=== PATIENT | male | born 2000 ===

== ENCOUNTER 2021-08-07 22:06 | Observation (INO) | payer SELFPAY ==
--- NOTE | 2021-08-07 22:55 | XRay Report ---
CHEST 1 VIEW 08/07/2021 9:49 PM INDICATION / CLINICAL INFORMATION: Chest Pain. COMPARISON: None available. FINDINGS: SUPPORT DEVICES: None. HEART / MEDIASTINUM: No significant abnormality. LUNGS / PLEURA: No significant pulmonary or pleural abnormality. No pneumothorax. ADDITIONAL FINDINGS: No significant additional findings. IMPRESSION: 1. No acute findings. Signer Name: Antonio Sam MD Signed: 08/07/2021 10:51 PM Workstation Name: [id number]
[2021-08-07 22:59] LABS: Basophils % (Auto) 0.4 % (0.0-1.8); Eosinophils # (Auto) 0.1 K/mm3 (0.0-0.4); Hematocrit 44.9 % (35.5-45.6); Hemoglobin 15.2 gm/dl (11.8-15.2); Lymphocytes # (Auto) 1.4 K/mm3 (1.2-5.4); Lymphocytes % (Auto) 19.8 % (13.4-35.0); Mean Corpuscular HGB Conc 34 % (32-34); Mean Corpuscular Volume 95 fl (84-94); Monocytes % (Auto) 14.6 % (0.0-7.3); Platelet Count 132 K/mm3 (140-440); Red Blood Count 4.76 M/mm3 (3.65-5.03); Red Cell Distribution Width 12.4 % (13.2-15.2)
[2021-08-07 23:10] LABS: INR 0.93 (0.87-1.13)
[2021-08-07 23:11] LABS: Partial Thromboplastin Time 27.9 Sec. (24.2-36.6)
[2021-08-07 23:38] LABS: Alanine Aminotransferase 18 units/L (7-56); Albumin 4.5 g/dL (3.9-5); BUN/Creatinine Ratio 17; Blood Urea Nitrogen 15 mg/dL (9-20); Hemolysis Index 4
[2021-08-07] MEDS ORDERED: ASPIRIN 81 MG TAB CHEW PO ONE (23:59)
--- NOTE | 2021-08-08 00:37 | Emergency Department Report ---
ED General Adult HPI - General Chief complaint: Chest Pain Stated complaint: CHEST PAIN Time Seen by Provider: 08/07/21 22:16 Source: patient Mode of arrival: Ambulatory Limitations: No Limitations - History of Present Illness Initial comments: The patient presents to the emergency department with a chief complaint of chest pain that started yesterday. Patient is Divehi-speaking thus is acts as the certified court/medical interpreter. He states the chest pain started in his substernal region radiating into his left chest and left arm. He also complains of the pain radi ated to his throat. The chest pain is described as pressure/burning sensation. He complains of nausea but denies diaphoresis. Patient received a second maternal shot 2 days ago. Patient states the pain is worse when laying down -: Sudden Location: chest Radiation: extremity Severity scale (0 -10): 7 Quality: burning, other (Pressure) Consistency: constant Improves with: none Worsens with: none Associated Symptoms: denies other symptoms Treatments Prior to Arrival: none - Related Data Allergies Allergy/AdvReac Type Severity Reaction Status Date / Time No Known Allergies Allergy Unverified 08/07/21 23:18 ED Review of Systems ROS: Stated complaint: CHEST PAIN Other details as noted in HPI Constitutional: denies: chills, fever Eyes: denies: eye pain, eye discharge, vision change ENT: denies: ear pain, throat pain Respiratory: denies: cough, shortness of breath, wheezing Cardiovascular: chest pain. denies: palpitations Endocrine: no symptoms reported Gastrointestinal: denies: abdominal pain, nausea, diarrhea Genitourinary: denies: urgency, dysuria Musculoskeletal: denies: back pain, joint swelling, arthralgia Skin: denies: rash, lesions Neurological: denies: headache, weakness, paresthesias Psychiatric: denies: anxiety, depression Hematological/Lymphatic: denies: easy bleeding, easy bruising ED Past Medical Hx - Past Medical History Previous Medical History?: No - Surgical History Past Surgical History?: No ED Physical Exam - General Limitations: No Limitations General appearance: alert, in no apparent distress - Head Head exam: Present: atraumatic, normocephalic - Eye Eye exam: Present: normal appearance, PERRL, EOMI - ENT ENT exam: Present: mucous membranes moist - Neck Neck exam: Present: normal inspection - Respiratory Respiratory exam: Present: normal lung sounds bilaterally. Absent: respiratory distress - Cardiovascular Cardiovascular Exam: Present: regular rate, normal rhythm. Absent: systolic murmur, diastolic murmur, rubs, gallop - GI/Abdominal GI/Abdominal exam: Present: soft, normal bowel sounds. Absent: distended, t enderness - Rectal Rectal exam: Present: deferred - Extremities Exam Extremities exam: Present: normal inspection - Back Exam Back exam: Present: normal inspection - Neurological Exam Neurological exam: Present: alert, oriented X3, CN II-XII intact. Absent: motor sensory deficit - Psychiatric Psychiatric exam: Present: normal affect, normal mood - Skin Skin exam: Present: warm, dry, intact, normal color. Absent: rash ED Course Vital Signs 08/07/21 08/07/21 08/07/21 22:10 22:30 22:38 Temperature 97.8 F Pulse Rate 86 Respiratory 16 18 14 Rate Blood Pressure 112/66 O2 Sat by Pulse 97 100 Oximetry 08/07/21 08/07/21 08/07/21 22:45 23:15 23:31 Temperature Pulse Rate 79 74 78 Respiratory 17 17 13 Rate Blood Pressure 108/74 107/71 106/65 O2 Sat by Pulse 100 100 100 Oximetry 08/07/21 08/08/21 23:45 00:01 Temperature Pulse Rate 81 88 Respiratory 12 14 Rate Blood Pressure 106/65 111/72 O2 Sat by Pulse 100 99 Oximetry ED Medical Decision Making - Lab Data Result diagrams: 08/07/21 22:41 08/07/21 22:41 Lab Results 08/07/21 08/07/21 08/07/21 Range/Units 22:41 22:41 22:41 WBC 7.0 (4.5-11.0) K/mm3 RBC 4.76 (3.65-5.03) M/mm3 Hgb 15.2 (11.8-15.2) gm/dl Hct 44.9 (35.5-45.6) % MCV 95 H (84-94) fl MCH 32 (28-32) pg MCHC 34 (32-34) % RDW 12.4 L (13.2-15.2) % Plt Count 132 L (140-440) K/mm3 Lymph % (Auto) 19.8 (13.4-35.0) % [place] % (Auto) 14.6 H (0.0-7.3) % Eos % (Auto) 2.0 (0.0-4.3) % Baso % (Auto) 0.4 (0.0-1.8) % Lymph # (Auto) 1.4 (1.2-5.4) K/mm3 [place] # (Auto) 1.0 H (0.0-0.8) K/mm3 Eos # (Auto) 0.1 (0.0-0.4) K/mm3 Baso # (Auto) 0.0 (0.0-0.1) K/mm3 Seg Neutrophils % 63.2 (40.0-70.0) % Seg Neutrophils # 4.4 (1.8-7.7) K/mm3 PT 13.5 (12.2-14.9) Sec. INR 0.93 (0.87-1.13) APTT 27.9 (24.2-36.6) Sec. D-Dimer 136.10 (0-234) ng/mlDDU Sodium 135 L (137-145) mmol/L Potassium 3.8 (3.6-5.0) mmol/L Chloride 96.7 L (98-107) mmol/L Carbon Dioxide 26 (22-30) mmol/L Anion Gap 16 mmol/L BUN 15 (9-20) mg/dL Creatinine 0.9 (0.8-1.3) mg/dL Estimated GFR > 60 ml/min BUN/Creatinine Ratio 17 % Glucose 98 (75-100) mg/dL Calcium 10.0 (8.4-10.2) mg/dL Total Bilirubin 0.30 (0.1-1.2) mg/dL AST 41 H (5-40) units/L ALT 18 (7-56) units/L Alkaline Phosphatase 102 (35-129) units/L Troponin T 0.384 H* (0.00-0.029) ng/mL Total Protein 7.5 (6.3-8.2) g/dL Albumin 4.5 (3.9-5) g/dL Albumin/Globulin Ratio 1.5 % Lipase 16 (13-60) units/L - EKG Data -: EKG Interpreted by [place] EKG shows normal: sinus rhythm - EKG Data Interpretation: other (EKG shows diffuse ST elevations throughout multiple leads) - Radiology Data Radiology results: report reviewed - Medical Decision Making Initial EKG reads acute MO. Patient has ST elevations in leads I, 2, 3, aVF, V4, V5, V6. I feel like this is likely secondary to pericarditis but since the EKG says acute STEMI intervention cardiology was contacted. I spoke to Dr. Angelina Burdick an EKG was sent for his review. He agrees that the patient has diffuse ST elevation which be more likely secondary to other cardiac etiologies and not a STEMI. Discussed work-up and plan of care with the patient and his aunt Critical Care Time: Yes Critical care time in (mins) excluding proc time.: 35 Critical care attestation.: If time is entered above; I have spent that time in minutes in the direct care of this critically ill patient, excluding procedure time. ED Disposition Clinical Impression: Elevated troponin, Pericarditis Disposition: HOME / SELF CARE / HOMELESS Is pt being admited?: No Does the pt Need Aspirin: No Condition: Fair Referrals: PRIMARY CARE, [Primary Care Provider] - 3-5 Days
[2021-08-08] MEDS ORDERED: NITROGLYCERIN 0.4 MG TAB SUBL SL PRN (01:32)
[2021-08-08] MEDS ORDERED: ACETAMINOPHEN 325 MG TAB PO PRN ×2 (01:32)
[2021-08-08] MEDS ORDERED: MORPHINE 4 MG/1 ML INJ IV PRN ×2 (01:32)
[2021-08-08] MEDS ORDERED: ONDANSETRON 4 MG/2 ML INJ IV PRN (01:32)
[2021-08-08] MEDS ORDERED: traMADol 50 MG TAB PO PRN (01:32)
[2021-08-08] MEDS ORDERED: MAGNESIUM HYDROXIDE (MOM) ORAL LIQD UDC PO PRN (01:32)
[2021-08-08] MEDS ORDERED: MORPHINE 2 MG/1 ML INJ IV PRN (01:32)
[2021-08-08 01:41] LABS: Chol/HDL Ratio 2.02 %; HDL Cholesterol 72 mg/dL (40-59); LDL Cholesterol,Direct 69 mg/dL (50-130)
--- NOTE | 2021-08-08 01:46 | History and Physical Report ---
History of Present Illness Date of examination: 08/08/21 Date of admission: 08/08/2021 Chief complaint: Chest Pain History of present illness: 20-year-old male with no significant past medical history presenting to the emergency room today complaining of chest pain. Chest pain was said to have started about 24 hours ago. Pain was said to be substernal and radiating towards the left side of his chest, throat and left upper extremity. He has had some associated nausea but no vomiting. He denies any headache and denies any diaphoresis. Chest pain is said to be worse when lying down. He denies any fever or chills. Denies any sick contacts and no recent travel. Patient indicates that he received his second dose of MODERNA COVID-19 vaccination about 2 to 3 days ago. Work-up in the emergency room today EKG shows diffuse ST elevations. Troponin was elevated at 0.384. Chest x-ray was unremarkable. Findings were discussed with neurology technologist Dr. Melgoza who suspects that patient is having pericarditis. He will be promptly followed for further work-up. Past History Past Medical History: No medical history Past Surgical History: No surgical history Social history: no significant social history Family history: no significant family history Medications and Allergies Allergies Allergy/AdvReac Type Severity Reaction Status Date / Time No Known Allergies Allergy Verified 08/08/21 01:44 Review of Systems Constitutional: no fever, no chills Ears, nose, mouth and throat: no nasal congestion, no sore throat Cardiovascular: no chest pain, no palpitations Respiratory: no cough, no shortness of breath Gastrointestinal: no abdominal pain, no nausea, no vomiting, no diarrhea Genitourinary Male: no dysuria, no hematuria, no nocturia Musculoskeletal: no neck pain, no low back pain Integumentary: no rash, no pruritis Neurological: no headaches, no confusion Psychiatric: no anxiety, no depression Endocrine: no polydipsia, no polyuria, no nocturia Exam - Constitutional Vitals: Temp Pulse Resp BP Pulse Ox 97.8 F 73 21 104/74 98 08/07/21 22:10 08/08/21 01:15 08/08/21 01:15 08/08/21 01:15 08/08/21 01:15 General appearance: Present: no acute distress, well-nourished - EENT Eyes: Present: PERRL, EOM intact. Absent: scleral icterus ENT: hearing intact, clear oral mucosa, dentition normal - Neck Neck: Present: supple, normal ROM - Respiratory Respiratory effort: normal Respiratory: bilateral: CTA - Cardiovascular Rhythm: regular Heart Sounds: Present: S1 & S2. Absent: gallop, systolic murmur, diastolic murmur, rub, click - Extremities Extremities: no ischemia, pulses intact, pulses symmetrical, No edema, normal temperature, normal color, Full ROM Peripheral Pulses: within normal limits - Abdominal General gastrointestinal: Present: soft, non-tender, non-distended, normal bowel sounds. Absent: mass - Integumentary Integumentary: Present: clear, warm, dry. Absent: rash - Musculoskeletal Musculoskeletal: strength equal bilaterally - Psychiatric Psychiatric: appropriate mood/affect, intact judgment & insight, memory intact, cooperative - Neurologic Neurologic: CNII-XII intact, no focal deficits, moves all extremities HEART Score - HEART Score Troponin: Troponin T 0.384 ng/mL (0.00-0.029) H* 08/07/21 22:41 Results - Labs CBC & Chem 7: 08/08/21 04:36 08/08/21 04:36 Labs: Abnormal lab results 08/07/21 08/07/21 08/08/21 Range/Units 22:41 22:41 00:20 MCV 95 H (84-94) fl RDW 12.4 L (13.2-15.2) % Plt Count 132 L (140-440) K/mm3 [place] % (Auto) 14.6 H (0.0-7.3) % [place] # (Auto) 1.0 H (0.0-0.8) K/mm3 Sodium 135 L (137-145) mmol/L Chloride 96.7 L (98-107) mmol/L AST 41 H (5-40) units/L Total Creatine Kinase 442 H (55-170) units/L Troponin T 0.384 H* (0.00-0.029) ng/mL HDL Cholesterol 72 H (40-59) mg/dL Assessment and Plan - Patient Problems (1) Chest pain Current Visit: Yes Status: Acute Plan to address problem: Possibly secondary to pericarditis vs NSTEMI. However we will check serial cardiac enzymes and await further evaluation by cardiology. Meanwhile patient started on nonsteroidal anti-inflammatory medication. (2) Elevated troponin Current Visit: Yes Status: Acute Plan to address problem: Troponins has been trending up. Will commence on heparin drip while awaiting further recommendations from cardiology. (3) Pericarditis Current Visit: Yes Status: Acute Plan to address problem: Patient started on NSAIDs. We will monitor EKG and also monitor cardiac enzymes. (4) DVT prophylaxis Current Visit: Yes Status: Acute Plan to address problem: Patient placed on subcutaneous Lovenox. (5) Full code status Current Visit: Yes Status: Acute Plan to address problem: Patient is full code.
[2021-08-08] MEDS ORDERED: IBUPROFEN 600 MG TAB PO PRN (04:29)
[2021-08-08 04:52] LABS: Basophils % (Auto) 0.4 % (0.0-1.8); Eosinophils # (Auto) 0.1 K/mm3 (0.0-0.4); Eosinophils % (Auto) 1.4 % (0.0-4.3); Hematocrit 45.3 % (35.5-45.6); Hemoglobin 15.1 gm/dl (11.8-15.2); Lymphocytes # (Auto) 1.3 K/mm3 (1.2-5.4); Lymphocytes % (Auto) 20.1 % (13.4-35.0); Mean Corpuscular HGB Conc 33 % (32-34); Mean Corpuscular Volume 97 fl (84-94); Monocytes % (Auto) 15.9 % (0.0-7.3); Platelet Count 135 K/mm3 (140-440); Red Blood Count 4.69 M/mm3 (3.65-5.03); Red Cell Distribution Width 12.4 % (13.2-15.2)
[2021-08-08] MEDS ORDERED: IBUPROFEN 600 MG TAB PO SCH (05:00)
[2021-08-08 05:09] LABS: BUN/Creatinine Ratio 18; Blood Urea Nitrogen 14 mg/dL (9-20); Calcium 9.6 mg/dL (8.4-10.2); Hemolysis Index 15
[2021-08-08] MEDS ORDERED: HEPARIN 10,000 UNITS/10 ML VIAL IV PRN (05:19)
[2021-08-08] MEDS ORDERED: HEPARIN 10,000 UNITS/10 ML VIAL IV ONE ×2 (05:19→05:30)
[2021-08-08] MEDS ORDERED: HEPARIN/ 0.45% NACL DRIP 25,000 UNIT/500 ML BAG IV SCH (06:00)
[2021-08-08] MEDS ORDERED: SODIUM CHLORIDE 0.9% 1000 ML 1,000 ML IV SCH (06:15)
[2021-08-08 06:52] LABS: Hematocrit 45.2 % (35.5-45.6); Hemoglobin 15.1 gm/dl (11.8-15.2)
[2021-08-08 07:04] LABS: INR 1.05 (0.87-1.13)
[2021-08-08 07:56] LABS: Partial Thromboplastin Time 161.2 Sec. (24.2-36.6)
--- NOTE | 2021-08-08 10:48 | Event Note ---
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 Full consult dictated. Thanks.
--- NOTE | 2021-08-08 11:04 | Consultation ---
DATE OF CONSULTATION: 08/08/2021 CARDIOLOGY CONSULTATION REASON FOR CONSULTATION: Advice and opinion regarding chest pain. HISTORY OF PRESENT ILLNESS: The patient is an exceedingly pleasant 20-year-old -[place], who presents with chest pain. It should be noted that I used a hospital-based lead coater throughout the interview. He apparently got the Moderna shot on Thursday, started developing sharp and pressure-like chest pain on left and right side of the chest on Thursday, brought to the Emergency Room yesterday, which was Thursday. Currently, seen in the echo lab. He is chest pain free, feels much better. No symptoms. Smiling, conversant, appears very comfortable. He has no past medical history. 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 Rare smoker, nondrinker. No family history of premature heart disease or any cardiac disease. Of note, he prior to this had no symptoms with exertion, very active as he should be as a 20-year-old. Currently, denies any chest pain, shortness of breath, syncope, presyncope, lightheadedness, dizziness, skin rash, abdominal pain, hematochezia, melena, hemoptysis, blurred vision, headache. MEDICATIONS: No known home medications. Inpatient medications are reviewed. ALLERGIES: No known drug, food, or environmental allergies. REVIEW OF SYSTEMS: As per HPI. PHYSICAL EXAMINATION: VITAL SIGNS: Tele reveals sinus rhythm in the 60s and 70s. Blood pressure is 109/55. He is afebrile. O2 sat is 100% on room air. GENERAL: This is a young male, well-developed, well-nourished, in no apparent distress, oriented x 3. HEENT: Sclerae are anicteric. PERRLA. NECK: Supple, no masses, no JVD. CHEST: Clear to auscultation bilaterally. Good air movement. CARDIOVASCULAR: Regular rhythm, S1, S2. ABDOMEN: Soft, nontender, nondistended. Normoactive bowel sounds in all 4 quadrants. No mass or bruits. EXTREMITIES: No cyanosis, clubbing, edema. Good peripheral pulses. SKIN: Intact. No rashes. LABORATORY DATA: His EKG shows borderline diffuse ST elevation, no reciprocal changes. Initial troponin is 0.38. CK of 442. ProBNP of 210. Second troponin is 0.91. D-dimer is normal. Chest x-ray is unremarkable. Echocardiogram, which I just reviewed is also normal. ASSESSMENT AND PLAN: In summary, the patient is a very pleasant 20-year-old gentleman. Chest pain for 2 days with antecedent Moderna second vaccine with findings now likely consistent with myopericarditis. Chest pain is now resolved. Need to discontinue heparin. This was not started by us. To avoid the risk of hemorrhagic pericarditis, initiate indomethacin therapy. Echocardiogram is unremarkable. His symptoms are resolved. We will continue to cycle troponin levels. Check a Lexiscan nuclear stress test in a.m. Again, I spent significant time with the patient via steel heater and explained to him what is going on here. He expressed understanding and was thankful for our care. We will follow along. Thank you for this consultation. TID: [id number] RECEIPT: [id number] CORINNE/SUSHANT
--- NOTE | 2021-08-08 11:18 | Event Note ---
Date: 08/08/21 This is a follow-up from admission earlier this morning. We will continue to plan as outlined in H&P. I discussed the case with cardiology nurse practitioner. Total visit time equals 35 minutes with greater than 50% spent on coordination of care and counseling
[2021-08-08] MEDS: INDOMETHACIN 25 MG CAP PO SCH ×2 (13:44→21:15)
[2021-08-08] MEDS ORDERED: ENOXAPARIN 40 MG/0.4 ML INJ SUB-Q SCH (22:00)
[2021-08-09 05:38] LABS: Basophils % (Auto) 0.5 % (0.0-1.8); Eosinophils # (Auto) 0.2 K/mm3 (0.0-0.4); Hematocrit 45.9 % (35.5-45.6); Hemoglobin 15.3 gm/dl (11.8-15.2); Lymphocytes # (Auto) 1.5 K/mm3 (1.2-5.4); Lymphocytes % (Auto) 34.4 % (13.4-35.0); Mean Corpuscular HGB Conc 33 % (32-34); Mean Corpuscular Volume 97 fl (84-94); Monocytes # (Auto) 0.7 K/mm3 (0.0-0.8); Platelet Count 141 K/mm3 (140-440); Red Blood Count 4.74 M/mm3 (3.65-5.03); Red Cell Distribution Width 12.5 % (13.2-15.2)
[2021-08-09 05:53] LABS: BUN/Creatinine Ratio 16; Blood Urea Nitrogen 14 mg/dL (9-20); Calcium 9.7 mg/dL (8.4-10.2); Hemolysis Index 22
--- NOTE | 2021-08-09 08:10 | Discharge Summary ---
Providers - Providers Date of Admission: 08/08/21 01:26 Date of discharge: 08/09/21 Attending physician: JANNETTE BORGSE 08/08/21 Consult to Cardiac Rehabilitation [CONS] Routine Reason For Exam: Phase I 08/08/21 01:32 Consult to Cardiology [CONS] Routine Consulting Provider: AJITH MATUTE Reason For Exam: Chest Pain, Elevated troponin, r/o Pericarditis Primary care physician: GAS CHARGER Hospitalization Reason for admission: cp Condition: Fair Hospital course: 20-year-old [place] male who presented through the emergency department with chest pain. Patient reportedly received 2nd vaccine Materna on Thursday and started developing sharp pressure-like chest pain on the left side and right side of the chest lasting through Thursday. Patient presented to the emergency room on Thursday. Patient was noted to have elevated troponin of 0.38 and 0.91 after admission. Initial EKG had ST elevation in leads I, 2, 3, aVF, V4, V5, V6. Patient was admitted with diagnosis of elevated troponin, chest pain and probable pericarditis. Cardiology was consulted. The patient was initially started on heparin drip by the admitting physician but this was later discontinued to avoid risk of hemorrhagic pericarditis. Patient was initiated on indomethacin therapy. Echocardiogram was unremarkable. The patient will have stress test this morning and if found to be negative will discharge home. Dedicated discharge time 35 minutes Disposition: 01 HOME / SELF CARE / HOMELESS Final Discharge Diagnosis (Prints w/discharge instructions): Elevated troponin, chest pain secondary to myopericarditis Core Measure Documentation - Palliative Care Palliative Care/ Comfort Measures: Not Applicable - Core Measures Any of the following diagnoses?: none Exam - Constitutional Vitals: Temp Pulse Resp BP Pulse Ox 97.6 F 70 16 115/51 97 08/09/21 07:53 08/09/21 07:53 08/09/21 07:53 08/09/21 07:53 08/09/21 07:53 General appearance: Present: no acute distress, well-nourished - EENT Eyes: Present: PERRL ENT: hearing intact, clear oral mucosa - Neck Neck: Present: supple, normal ROM - Respiratory Respiratory effort: normal Respiratory: bilateral: CTA - Cardiovascular Heart Sounds: Present: S1 & S2. Absent: rub, click - Extremities Extremities: pulses symmetrical, No edema Peripheral Pulses: within normal limits - Abdominal General gastrointestinal: Present: soft, non-tender, non-distended, normal bowel sounds Male genitourinary: Present: normal - Integumentary Integumentary: Present: clear, warm, dry - Musculoskeletal Musculoskeletal: gait normal, strength equal bilaterally - Psychiatric Psychiatric: appropriate mood/affect, intact judgment & insight - Neurologic Neurologic: CNII-XII intact, moves all extremities Plan Activity: advance as tolerated Weight Bearing Status: Weight Bear as Tolerated Diet: regular Follow up with: PRIMARY CARE, [Primary Care Provider] - 3-5 Days Prescriptions: Indomethacin [Indocin] 50 mg PO DAILY #18 capsule
[2021-08-09] MEDS ORDERED: REGADENOSON 0.4 MG/5 ML INJ IV ONE (09:04)
[2021-08-09] MEDS ORDERED: ASPIRIN EC 325 MG TAB PO SCH (10:00)
[2021-08-09] MEDS: INDOMETHACIN 25 MG CAP PO SCH ×2 (10:15→12:30)
[2021-08-09 12:32] VITALS: BP 113/62
[2021-08-09 12:55] LABS: C-Reactive Protein 1.5 mg/dL (0.00-1.30)
--- NOTE | 2021-08-09 13:42 | Progress Note ---
Assessment and Plan Echo 08/08/2021-EF 55 to 60%, left ventricular diastolic function is normal, left and right atrium are normal in size. Right ventricular systolic function is normal. Lexiscan MPI stress test 08/09/2021-negative for signs of ischemia Patient currently chest pain-free Patient cardiac status is stable for discharge. Patient should continue indomethacin therapy for 4 days post discharge Patient has a follow-up appointment with Dr. Melgoza, [facility] patient care specialist, on 08/23/2021 at 3 PM in our [place] location. Phone [phone] Patient seen in conjunction with Dr. Melgoza who agrees with this plan of care. Will sign off - Patient Problems (1) Chest pain Current Visit: Yes Status: Acute (2) Elevated troponin Current Visit: Yes Status: Acute (3) Pericarditis Current Visit: Yes Status: Acute Subjective Date of service: 08/09/21 Principal diagnosis: pericarditis Interval history: Patient for stress test this AM Sinus 70s on monitor Objective Vital Signs Temp Pulse Resp BP BP Pulse Ox 08/09/21 11:32 98.5 F 69 16 113/62 97 08/09/21 10:37 121/72 08/09/21 10:36 115/66 08/09/21 10:35 117/69 08/09/21 10:33 123/75 08/09/21 10:32 113/75 08/09/21 10:31 102/66 08/09/21 10:29 110/77 08/09/21 10:00 59 L 08/09/21 08:44 104/60 08/09/21 07:53 97.6 F 70 16 115/51 97 08/09/21 04:43 98.0 F 78 16 110/52 98 08/09/21 00:00 55 L 08/08/21 23:38 97.9 F 72 16 108/46 99 08/08/21 21:03 99 08/08/21 19:25 99.0 F 74 16 109/52 99 08/08/21 18:00 80 08/08/21 15:56 99.0 F 72 16 106/57 98 - Physical Examination General: No Apparent Distress HEENT: Positive: PERRL Neck: Positive: trachea midline Cardiac: Positive: Reg Rate and Rhythm Lungs: Positive: clear to auscultation, Normal Breath Sounds Neuro: Positive: Grossly Intact Abdomen: Positive: Soft, Active Bowel Sounds Skin: Negative: Rash, Suspicious Lesions, Ulceration Extremities: Present: upper extr. pulses, lower extr. pulses. Absent: edema - Labs and Meds CBC 08/09/21 Range/Units 04:34 WBC 4.3 L (4.5-11.0) K/mm3 RBC 4.74 (3.65-5.03) M/mm3 Hgb 15.3 H (11.8-15.2) gm/dl Hct 45.9 H (35.5-45.6) % Plt Count 141 (140-440) K/mm3 Lymph # (Auto) 1.5 (1.2-5.4) K/mm3 [place] # (Auto) 0.7 (0.0-0.8) K/mm3 Eos # (Auto) 0.2 (0.0-0.4) K/mm3 Baso # (Auto) 0.0 (0.0-0.1) K/mm3 Comprehensive Metabolic Panel 08/09/21 Range/Units 04:34 Sodium 139 (137-145) mmol/L Potassium 4.5 (3.6-5.0) mmol/L Chloride 102.4 (98-107) mmol/L Carbon Dioxide 25 (22-30) mmol/L BUN 14 (9-20) mg/dL Creatinine 0.9 (0.8-1.3) mg/dL Glucose 93 (75-100) mg/dL Calcium 9.7 (8.4-10.2) mg/dL - Imaging and Cardiology Echo: report reviewed - Telemetry EKG Rhythm: Sinus Rhythm - EKG Sinus rhythms and dysrhythmias: sinus rhythm
--- NOTE | 2021-08-09 14:09 | Electrocardiograph Report ---
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
--- NOTE | 2021-08-09 14:20 | Electrocardiograph Report ---
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
--- NOTE | 2021-08-11 07:39 | Treadmill Report ---
DATE OF SERVICE: 08/09/2021 NUCLEAR PERFUSION SCAN REFERRING PHYSICIAN: ____ PROTOCOL: The patient was assessed in postoperative state, given 10 mCi of technetium at rest. The patient had rest imaging. The patient underwent Lexiscan stress test per standard protocol. At peak stress, the patient given 26 mCi of technetium ____ that shortly thereafter, the patient had stress imaging. Raw imaging reveals mild to moderate GI artifact, no significant motion artifact. SPECT imaging examined carefully in horizontal long axis, vertical long axis, short axis views. Technically difficult study due to GI artifact, but grossly no evidence of a significant fixed or reversible perfusion defect suggestive of prior infarction or ischemia. Gated wall motion reveals normal systolic thickening with estimated ejection fraction of 60%. No TID. CONCLUSIONS: 1. Technically difficult study due to GI artifact, but probably normal without evidence of active ischemia or prior infarction. 2. Normal left ventricular systolic performance without evidence of transient ischemic dilatation or stress induced segmental wall motion. TID: [id number] RECEIPT: [id number] JOY/ISELA/UMER
== END 2021-08-09 17:00 | disposition home or self-care (01) ==
LOC: ED 22:06 → 4A 08-08 01:26
PROVIDERS: ADMIT Internal Medicine Geriatric Medicine; ATTEND Hospitalist
DX: R07.89 Other chest pain (principal); I31.9 Disease of pericardium, unspecified; R77.8 Other specified abnormalities of plasma proteins; Z79.899 Other long term (current) drug therapy; Z98.890 Other specified postprocedural states
CPT/HCPCS: 36415; 71045; 78452; 80048; 80053; 80061; 82550; 83690; 83880; 84484; 85014; 85018; 85025; 85049; 85379; 85520; 85610; 85652; 85730; 86140; 93005; 93017; 93306; 96365; 96366; 96376; 99291; A9502; G0378; J1644; J2785